=== PATIENT | female | born 1935 | race Caucasian/White ===

== ENCOUNTER 2016-10-20 17:22 | Observation (INO) | payer MEDICARE ==
[~2016-10-20] VITALS: Ht 170.2 cm; Wt 90.3 kg
--- NOTE | 2016-10-20 19:20 | DIAGNOSTIC IMAGING REPORT ---
PROCEDURE: US SOFT TISSUE ANYWHERE INDICATION: Injury. Coumadin. TECHNIQUE: Slater scale and color Doppler sonographic images of the right lateral leg were obtained COMPARISON: None. FINDINGS: There is a large 6.4 x 5.8 x 2.4 cm hypoechoic area in the lateral right leg/calf. Findings are compatible with intramuscular hematoma. IMPRESSION: 1. There is a 6.4 x 5.8 x 2.4 cm hypoechoic area in the right lateral leg/calf compatible with hematoma.
--- NOTE | 2016-10-20 20:24 | ED NURSING NOTES ---
Clinical Report - Nurses [facility] [address] [place] [address] 10/20/2016 17:26 Patient: CLIFF WARREN TRIAGE Triage time 17:35. Acuity: LEVEL 3. Chief Complaint: RIGHT LOWER EXTREMITY PAIN and SWELLING. Alert. DANIELLE COMA SCORE: Danielle Coma Scale: 15- eyes open spontaneously (4); best verbal response- oriented x 4 (5); best motor response- obeys commands (6). --17:54 Myla Melvin R.N. 17:35 10/20/16. BP: 167/63. HR: 59. RR: 18. O2 saturation: 97% on room air. Temp: 97.9 F (oral). Pain level now: 07/06. --17:54 Myla Melvin R.N. Weight: 90.2 kg stated. Height/Length: 67 inches Per Patient. BMI: 31.2. --17:51 Myla Melvin R.N. Medications Coumadin Oral. --17:37 Myla Melvin R.N. Albuterol Sulfate Inhalation. Furosemide Oral. MetFORMIN HCl Oral. Paxil Oral. Potassium Oral. Pravastatin Sodium Oral. Spironolactone Oral. Vitamin D Oral. --17:45 Myla Melvin R.N. AmLODIPine Besylate Oral. --17:47 Myla Melvin R.N. The following entry was struck by Myla Melvin R.N., 17:47 (10/20/16) Reason - other. <<STRICKEN ENTRY-- Blood Pressure Pill. --17:45 Myla Melvin R.N. --END STRIKE>>. Medication/allergy information source: the patient. --17:54 Myla Melvin R.N. Allergies Sulfa Antibiotics.(swelling) --17:46 Myla Melvin R.N. History Arrived by private vehicle. Historian: patient. Accompanied by family. Primary physician (Harish). This occurred today. ( fell this morning and has been hurting all day,). SOCIAL HX: Smoker- current status unknown (no). No alcohol use or drug use. LEARNING NEEDS ASSESSMENT: The learning needs assessment revealed no barriers. FALL RISK ASSESSMENT: Fall risk assessment completed. Risk factors identified include patient age greater than 65 years, history of fall and impairment of mobility. Fall interventions initiated. Patient placed on stretcher. Side rails up x2. Brakes on Bed in low position. FUNCTIONAL ASSESSMENT: Functional assessment performed: independent with the activities of daily living; mobility impairment present- this mobility impairment is a new problem. --17:54 Myla Melvin R.N. PROBLEMS: Pacemaker. --17:36 Myla Melvin R.N. Hypertension. Heart Disease. Diabetes Mellitus. Depression. Asthma. Kidney disease. --17:49 Myla Melvin R.N. ADDITIONAL SURGERIES: Carpal Tunnel Surgery. Hysterectomy. Mitral valvuloplasty. Pacemaker. Rectocele. Tubal Ligation. --17:49 Myla Melvin R.N. Assessment GENERAL / NEURO / PSYCH: The patient is awake and alert and is oriented and cooperative. She appears uncomfortable and agitated and has good eye contact. RESPIRATORY: Respirations not labored. SKIN: Skin is warm and dry. --17:54 Myla Melvin R.N. Interventions ID band on patient. To treatment room. --17:54 Myla Melvin R.N. PHYSICAL ASSESSMENT 17:35. To room via wheelchair. GENERAL / NEURO / PSYCH: Oriented X 4. Appears in pain. SKIN: Skin is warm and dry. --19:07 Myla Melvin R.N. NURSING PROGRESS NOTES 18:41 10/20/2016 Oxycodone-APAP (Oxycodone-Acetaminophen) PO 5/325 mg Tablets 2 tab given. Allergies verified, confirmed 5 rights and sedative warning given to the patient. --18:41 Myla Melvin R.N. 17:35. Call light placed in reach. Side rails up x 1. Bed placed in lowest position. Brakes of bed on. --19:08 Myla Melvin R.N. 17:36 had to go to the BR. --17:36 Olegario, Myla, R.N. Care transferred and report received. --19:15 Karuna Flower R.N. 20:03 10/20/16. BP: 174/62. HR: 52. RR: 15. O2 saturation: 95% on room air. Harper-Burden pain scale: 4/10. --20:04 Karuna Flower R.N. Patient and family informed about reason for wait and about plan of care. Patient waiting for consult. --20:04 Karuna Flower R.N. 20:36. The patient is calm and resting quietly. GENERAL / NEURO / PSYCH: Alert. Oriented X 4. RESPIRATORY: No respiratory distress. --20:37 Rich Bar R.N. 20:36 10/20/16. BP: 188/59. HR: 48. RR: 15. O2 saturation: 93% on room air. --20:37 Rich Bar R.N. 20:39 Patient and family notifed about NPO status. --20:40 Rich Bar R.N. ( Gave patient sandwich, apple juice, milk and cheese sticks to eat.). --21:20 Yusra Velazco addition to previous entry by Yusra: Food and drink given per verbal OK from vance GOVEA. --21:57 Karuna Flower R.N. DISPOSITION / DISCHARGE 21:55 10/20/16. BP: 147/54. HR: 60. RR: 16. O2 saturation: 92% on room air. Temp: deferred. Harper-Burden pain scale: 10. --21:55 Karuna Flower R.N. Disposition: observation in Acute Care. --22:00 Karuna Flower R.N. Report was given to a nurse via a phone call. All questions were answered. Report was acknowledged. (to KENYATTA Cid). --22:30 Karuna Flower R.N. Departure time: 2234Oct 20 2016. --02:39 Karuna Flower R.N. Locked/Released at 10/21/2016 2:39 by Karuna Flower R.N.
--- NOTE | 2016-10-20 20:24 | ED CLINICAL REPORT ---
Clinical Report - Physicians/Mid Levels [facility] [address] [place] [address] 10/20/2016 17:26 Patient: CLIFF WARREN Time Seen: 17:52 Oct 20 2016. Arrived- By private vehicle. Historian- patient. Note: (Sent from the clinic after initial evaluation.). CPT: ER phys charges level 5 (#[id number]). HISTORY OF PRESENT ILLNESS Location of injuries- right leg. Chief Complaint: FALL and INJURY TO LEFT LOWER EXTREMITY (LEG). The injury occurred today. Fell while walking and landed on a wood surface; slipped. Occurred at home. ( HAs a large , painful hematoma , right leg and is on coumadin.). The patient complains of moderate pain. No blow to the head, neck pain or loss of consciousness. REVIEW OF SYSTEMS The patient complains of pain on weight bearing. No numbness, dizziness, chest pain or pain or difficulty breathing. No weakness, headache, nausea, abdominal pain or laceration. No vomiting, fever, epistaxis, mouth sores or cough. No difficulty breathing, black stools, bloody stools, nausea or vomiting. No hematuria or easy bruising. The patient complains of pain on weight bearing. All systems otherwise negative, except as recorded above. PAST HISTORY Pacemaker. Hypertension. Heart Disease. Diabetes Mellitus. Depression. Asthma. Kidney disease. ADDITIONAL SURGERIES: Carpal Tunnel Surgery. Hysterectomy. Mitral valvuloplasty. Pacemaker. Rectocele. Tubal Ligation. SOCIAL HISTORY No alcohol use or drug use. ADDITIONAL NOTES The nursing notes have been reviewed. PHYSICAL EXAM Vital Signs: 10/20/2016 17:35 BP: 167/63. HR: 59. RR: 18. O2 saturation: 97%. Temp: 97.9 F. Pain level now: 10/10. Appearance: Alert. Appears to be in pain. Patient in moderate distress. Head: Head non-tender. No swelling of head. Eyes: Pupils equal, round and reactive to light. EOM intact. ENT: No dental injury. Pharynx normal. Neck: Painless ROM. Non-tender. CVS: Heart sounds normal. Pulses normal. Respiratory: Breath sounds normal. Chest nontender. Abdomen: No visible injury. Soft and nontender. Bowel sounds normal. Back: No tenderness. ROM normal. Skin: Skin intact. Skin warm. Extremities: Right leg: moderate tenderness and swelling and medium sized ecchymosis located in the upper and mid leg. Limited weight bearing secondary to pain. Neurovascular intact distally. (No pallor or passive ROM pain. 2+ distal pulses.). Neuro: Oriented X 3. No motor deficit. No sensory deficit. Reflexes normal. LABS, X-RAYS, AND EKG Note - Tests: (Right lower leg soft tissue ultrasound shows a large hematoma that is approximately 8 cm x 4 cm. No arterial component.). PROGRESS AND PROCEDURES Course of Care: Percocet 2 po Tib-fib x-ray of the right leg as well as right hand x-ray were done in the clinic today were negative for fracture. Patient's last INR she states was 4 days ago and was around 2.3 she thinks. Pt will need observation to monitor any progression towards compartment syndrome. Discussed case with on-call health care provider, (Nehemias). Reviewed test results. Agreed upon treatment plan. Health care provider will see patient in ED. Patient/family counseled. Old medical records ordered. Disposition: Admitted to Acute Care. CLINICAL IMPRESSION Large right leg hematoma At risk for compartment syndrome Anticoagulation status. (Electronically signed by Edmundo Ibarra MD 10/21/2016 11:09)
--- NOTE | 2016-10-20 20:24 | ED CLINICAL REPORT ---
Clinical Report - Physicians/Mid Levels [facility] [address] [place] [address] 10/20/2016 17:26 Patient: CLIFF WARREN Time Seen: 17:52 Oct 20 2016. Arrived- By private vehicle. Historian- patient. Note: (Sent from the clinic after initial evaluation.). CPT: ER phys charges level 5 (#[id number]). HISTORY OF PRESENT ILLNESS Location of injuries- right leg. Chief Complaint: FALL and INJURY TO LEFT LOWER EXTREMITY (LEG). The injury occurred today. Fell while walking and landed on a wood surface; slipped. Occurred at home. ( HAs a large , painful hematoma , right leg and is on coumadin.). The patient complains of moderate pain. No blow to the head, neck pain or loss of consciousness. REVIEW OF SYSTEMS The patient complains of pain on weight bearing. No numbness, dizziness, chest pain or pain or difficulty breathing. No weakness, headache, nausea, abdominal pain or laceration. No vomiting, fever, epistaxis, mouth sores or cough. No difficulty breathing, black stools, bloody stools, nausea or vomiting. No hematuria or easy bruising. The patient complains of pain on weight bearing. All systems otherwise negative, except as recorded above. PAST HISTORY Pacemaker. Hypertension. Heart Disease. Diabetes Mellitus. Depression. Asthma. Kidney disease. ADDITIONAL SURGERIES: Carpal Tunnel Surgery. Hysterectomy. Mitral valvuloplasty. Pacemaker. Rectocele. Tubal Ligation. SOCIAL HISTORY No alcohol use or drug use. ADDITIONAL NOTES The nursing notes have been reviewed. PHYSICAL EXAM Vital Signs: 10/20/2016 17:35 BP: 167/63. HR: 59. RR: 18. O2 saturation: 97%. Temp: 97.9 F. Pain level now: 10/10. Appearance: Alert. Appears to be in pain. Patient in moderate distress. Head: Head non-tender. No swelling of head. Eyes: Pupils equal, round and reactive to light. EOM intact. ENT: No dental injury. Pharynx normal. Neck: Painless ROM. Non-tender. CVS: Heart sounds normal. Pulses normal. Respiratory: Breath sounds normal. Chest nontender. Abdomen: No visible injury. Soft and nontender. Bowel sounds normal. Back: No tenderness. ROM normal. Skin: Skin intact. Skin warm. Extremities: Right leg: moderate tenderness and swelling and medium sized ecchymosis located in the upper and mid leg. Limited weight bearing secondary to pain. Neurovascular intact distally. (No pallor or passive ROM pain. 2+ distal pulses.). Neuro: Oriented X 3. No motor deficit. No sensory deficit. Reflexes normal. LABS, X-RAYS, AND EKG Note - Tests: (Right lower leg soft tissue ultrasound shows a large hematoma that is approximately 8 cm x 4 cm. No arterial component.). PROGRESS AND PROCEDURES Course of Care: Percocet 2 po Tib-fib x-ray of the right leg as well as right hand x-ray were done in the clinic today were negative for fracture. Patient's last INR she states was 4 days ago and was around 2.3 she thinks. Pt will need observation to monitor any progression towards compartment syndrome. Discussed case with on-call health care provider, (Nehemias). Reviewed test results. Agreed upon treatment plan. Health care provider will see patient in ED. Patient/family counseled. Old medical records ordered. Disposition: Admitted to Acute Care. CLINICAL IMPRESSION Large right leg hematoma At risk for compartment syndrome Anticoagulation status. (Electronically signed by Edmundo Ibarra MD 10/21/2016 11:09)
--- NOTE | 2016-10-20 20:24 | ED ORDER SUMMARY ---
..... Patient: CLIFF WARREN OrderSheet [facility] VisitID: [id number] [place] [address] 81y, F Registration Date/Time: 10/20/2016 ORDER SHEET Weight: 90.2 kg (stated) Allergies: Sulfa Antibiotics GENERAL ORDERS: US Soft Tissue Anywhere (right leg) (fall on coumadin) Urgent (18:04 10/20/2016 Ebenezer GOVEA) (Ack 18:08 LMuller) (18:29 Gee R.N.) CBC w Diff Urgent (18:05 10/20/2016 Ebenezer GOVEA) (Ack 18:08 LMuller) (18:29 Gee R.N.) PT with INR Urgent (18:05 10/20/2016 Ebenezer GOVEA) (Ack 18:08 LMuller) (18:29 Gee R.N.) Tibia/Fibula Right Urgent (18:40 10/20/2016 Ebenezer GOVEA) (Ack 18:49 LMuller) (22:02 RCjohanna R.N.) MEDICATION ORDERS: Oxycodone-APAP PO 10/650 mg (NOW) (18:34 10/20/2016 Ebenezer GOVEA) (Ack 18:38 Keo R.N.) (18:41 Keo R.N.) IV FLUIDS: ORDER SHEET NOTES: [Electronically signed by Karuna Flower R.N. (02:39 10/21/2016)] [Electronically signed by Edmundo Ibarra MD (11:09 10/21/2016)] [Electronically locked/signed by Karuna Flower R.N. (02:39 10/21/2016)]
--- NOTE | 2016-10-20 20:24 | ED ORDER SUMMARY ---
..... Patient: CLIFF WARREN OrderSheet [facility] VisitID: [id number] [place] [address] 81y, F Registration Date/Time: 10/20/2016 ORDER SHEET Weight: 90.2 kg (stated) Allergies: Sulfa Antibiotics GENERAL ORDERS: US Soft Tissue Anywhere (right leg) (fall on coumadin) Urgent (18:04 10/20/2016 Ebenezer GOVEA) (Ack 18:08 LMuller) (18:29 Gee R.N.) CBC w Diff Urgent (18:05 10/20/2016 Ebenezer GOVEA) (Ack 18:08 LMuller) (18:29 Gee R.N.) PT with INR Urgent (18:05 10/20/2016 Ebenezer GOVEA) (Ack 18:08 LMuller) (18:29 Gee R.N.) Tibia/Fibula Right Urgent (18:40 10/20/2016 Ebenezer GOVEA) (Ack 18:49 LMuller) (22:02 RCjohanna R.N.) MEDICATION ORDERS: Oxycodone-APAP PO 10/650 mg (NOW) (18:34 10/20/2016 Ebenezer GOVEA) (Ack 18:38 Keo R.N.) (18:41 Keo R.N.) IV FLUIDS: ORDER SHEET NOTES: [Electronically signed by Karuna Flower R.N. (02:39 10/21/2016)] [Electronically signed by Edmundo Ibarra MD (11:09 10/21/2016)] [Electronically locked/signed by Karuna Flower R.N. (02:39 10/21/2016)]
[2016-10-20 22:55] VITALS: BP 157/59
--- NOTE | 2016-10-21 00:01 | HISTORY AND PHYSICAL ---
ADMITTED: 10/20/2016 CHIEF COMPLAINT: 1. Right lower crystal swelling and pain HISTORY OF PRESENT ILLNESS: This is a 81-year-old female with history of atrial fibrillation on Coumadin, presenting after a fall on the ice, during which she hit her right crystal. Over the course of today, her right crystal has become progressively more and more painful and more swollen and she did notice a bruise there. When the pain was too severe to handle, she presented to the emergency department. The family and the patient thinks that the hematoma may have continued to enlarge even this evening. MEDICAL/SURGICAL HISTORY: Past medical history: Congestive heart failure with the most recent echocardiogram approximately 1 week ago, atrial fibrillation, heart surgery, bilateral tubal ligation in 1959, hysterectomy and oophorectomy in 1985, pacemaker and pacemaker replacement, most recently in 2011, asthma, prediabetes, hypertension, GERD, CHF. MEDICATIONS: This medication list does need to be confirmed with patient's primary care physician. 1. Amlodipine 5 mg p.o. daily. 2. Spironolactone possibly 12.5 mg p.o. daily. 3. Paxil 10 mg p.o. daily. 4. Pravastatin 40 mg p.o. at bedtime. 5. Prilosec 20 mg p.o. b.i.d. 6. Potassium 10 mEq p.o. b.i.d. 7. Lasix 80 mg p.o. daily. 8. Metformin 500 mg p.o. b.i.d. 9. Coumadin 4 mg p.o. daily. ALLERGIES: 1. SULFA. SOCIAL HISTORY: The patient lives with her ex-, his daughter and son-in- law. She denies any smoking, alcohol use or drugs. FAMILY HISTORY: The patient's mother has diabetes and heart problem, sisters both have diabetes and one also has heart failure. REVIEW OF SYSTEMS: A full 12-point review of systems was negative except as per HPI, and the fact that patient has chronic shortness of breath, which is stable, and due to her congestive heart failure. PHYSICAL EXAMINATION: VITAL SIGNS: Blood pressure is 167/63, pulse is 59, respiratory rate is 16, O2 saturation is normal on room air. GENERAL: This is an elderly patient sitting in bed in no apparent distress. HEENT: Head is atraumatic, normocephalic. Pupils are equal, round, and reactive to light with accommodation bilaterally. Trachea is midline. NECK: There is no JVD. HEART: S1, S2, regular rate and rhythm. There is a 2/6 systolic murmur with a snap increased at the base. LUNGS: Clear to auscultation bilaterally. ABDOMEN: Soft, nontender, nondistended without hepatosplenomegaly or masses. Bowel sounds are active. EXTREMITIES: There is 1+ edema in bilateral ankles with approximately a 15 x 10 cm hematoma that is tender in the right crystal. The patient does have good CMS in that ankle and foot and is only tender directly over the hematoma. The rest of her leg is nontender. LAB/IMAGING: Laboratories: White blood cell count is 7.0, hemoglobin of 10.8, hematocrit of 34.3, platelets of 20.6. INR of 2.0. Other studies: Ultrasound: Shows a hypoechoic area in the right crystal of 6.4 x 5.8 x 2.4 cm on ultrasound. IMPRESSION: 1. This is a 81-year-old female with the history of atrial fibrillation on Coumadin, presenting to the hospital with complaints of right crystal pain and swelling secondary to a hematoma after she hit it from slipping on ice. PLAN: 1. The patient will be observed overnight to make sure that the hematoma does not get any larger. If it is enlarging or if her pain worsens, we would want to reevaluate for compartment syndrome. I did [place] the hematoma currently. She is adequately anticoagulated on her Coumadin. Since it appears that the hematoma has currently stopped bleeding we will not currently anticoagulate her. If the bleeding does appear to continue, we will probably need to reverse her anticoagulation. 2. Prophylaxis: The patient is adequately anticoagulated currently. We will recheck a PT/INR in the morning and reevaluate for the need for either more chemical or mechanical deep venous thrombosis prophylaxis, and patient is currently eating. 3. Code status: CODE STATUS IS DO NOT RESUSCITATE, and I did explain this explicitly to this patient today and discussed and this is her choice.
[2016-10-21 04:55] VITALS: BP 133/69
[2016-10-21 07:24] VITALS: BP 146/87
--- NOTE | 2016-10-21 08:17 | Progress Note ---
Subjective General Note Date: October 21, 2016 Admission Date: October 20, 2016 Hospital Day: 2 PCP: Tabitha Moreira M.D. Status: Observation Advanced Directive: NO CODE Room: 209- B Brief History: The patient is a 81-year-old white female with a significant past medical history of atrial fibrillation, chronic anticoagulation, diabetes mellitus, hypercholesterolemia, hypertension, who presented to [facility] emergency department secondary to fall with injury to right lower leg. [facility] ER evaluation was consistent with hematoma right lower leg. Secondary to the above, the patient was admitted by Brook Jean M.D. with consultation by Harvinder Graham M.D. (General surgery) for possible evacuation of hematoma. For other history present illness, past medical history, family history, social history, review of systems, and admission physical examination please see the patient's history and physical examination and ER visit note in the patient's medical record. Subjective: The patient states she is doing well. Right lower leg pain improved. Right lower leg swelling improved. Ambulating without significant difficulty. Patient requests: No specific Physical Exam Vital Signs / I&Os Vital Signs Date Time Temp Pulse Resp B/P Pulse O2 O2 Flow FiO2 Ox Delivery Rate 10/21 0724 97.5 66 18 146/87 95 Room Air 10/21 0455 98.6 66 16 133/69 95 Room Air 10/20 2255 98.1 61 18 157/59 94 Room Air 0.0 I&O 10/21 0000 10/20 1600 10/20 0800 Intake Total Output Total Balance General Appearance Alert, Oriented X3, Cooperative, No acute distress Lungs Clear to auscultation Cardiovascular Regular rate and rhythm, Normal S1 and S2 Abdomen Normal bowel sounds, Soft Extremities No cyanosis, No clubbing, hematoma present lateral aspect right lower leg. This area is soft without findings suggestive of compartment syndrome. Swelling improved. Neurological Grossly normal Psych/Mental Status Mental status normal, Mood normal LAB Results Laboratory Tests 10/21 10/20 10/20 10/20 0605 1849 1849 1849 Chemistry Plasma Sodium (136 - 145 mmol/L) 141 140 Plasma Potassium (3.5 - 5.1 mmol/L) 3.6 3.3 Plasma Chloride (98 - 107 mmol/L) 102 100 CO2 (Enzymatic) (21 - 32 mmol/L) 32 30 BUN (7 - 18 mg/dL) 24 21 Creatinine (0.6 - 1.3 mg/dL) 1.2 1.3 Est GFR ( Amer) (mL/min) 55.82 50.90 Est GFR (Non-Af Amer) (mL/min) 46.06 42.00 Glucose (70 - 110 mg/dL) 123 104 Hemoglobin A1c % (4.5 - 6.2 %) 6.4 Plasma Calcium (8.5 - 10.1 mg/dL) 8.5 8.8 Total Bilirubin (0.0 - 1.0 mg/dL) 0.7 AST (15 - 37 U/L) 21 ALT (12 - 78 U/L) 22 Alkaline Phosphatase (46 - 116 U/L) 83 B-Natriuretic Peptide (5 - 100 pg/ml) 222 Total Protein (6.4 - 8.2 g/dL) 7.3 Albumin (3.3 - 5.0 g/dL) 3.8 Coagulation INR (0.8 - 1.2) 1.9 2.0 Hematology WBC (4.5 - 11.5 K/uL) 5.7 7.0 RBC (4.00 - 5.20 M/uL) 3.70 3.99 Hgb (12.0 - 16.0 gm/dL) 10.1 10.8 Hct (36.0 - 46.0 %) 31.8 34.3 MCV (80 - 100 fL) 86 86 MCH (26 - 34 pg) 27 27 RDW (11.6 - 14.8 %) 16.6 16.4 Neut % (Auto) (50 - 75 %) 68.8 75.1 Lymph % (Auto) (25 - 40 %) 18.1 14.7 Johnson % (Auto) (3 - 14 %) 10.5 9.5 Eos % (Auto) (0 - 4 %) 1.7 0.3 Baso % (Auto) (0 - 2 %) 0.9 0.4 Plt Count, EDTA (150 - 400 K/uL) 187 206 PUBS MCHC (31 - 37 g/dL) 32 32 Assessment and Plan Problem List 1. Hematoma of leg Status Acute Onset Date 10/20/16 Plan -Patient presents with hematoma--leg -Monitor -Hold evacuation unless patient developed compartment syndrome or other necessities for evacuation -Consultation per Dr. Graham 2. Chronic anticoagulation Status Chronic Onset Date Unknown Plan -History of chronic anticoagulation -INR subtherapeutic at 1.9 today. -Hold Coumadin at this time -Monitor 3. Iron deficiency anemia Status Acute Onset Date Unknown Plan -Patient with findings of iron deficiency anemia -Ferrous sulfate 325 mg by mouth twice a day -Follow-up with PCP with consideration of upper/lower endoscopy -Repeat CBC/reticulocyte count in 2 weeks Current status: Fair, improved Anticipated discharge date: Today Anticipated discharge placement: Home Patient care time: Time spent in chart review, patient interview, physical exam, CPOE, and care documentation: Greater than 30 minutes Visit to patient today: 2 Complexity of care: Moderate For other recommendations regarding discharge diet, activity, followup, and discharge medications please see the patient's discharge instructions. Greater than 30 min. was spent in the patient's discharge preparation including discharge interview and physical examination, progress note, discharge instructions, and discharge summary E&M Codes Discharge: Observation - All/[id number] CPOE, and care documentation: [ ] minutes Visit to patient today: [ ] Complexity of care: [ ] E&M Codes Discharge: Observation - All/[id number]
[2016-10-21] MEDS ORDERED: ALLOPURINOL100 MG PO (10:34)
[2016-10-21] MEDS ORDERED: ALBUTEROL HFA60 DOSE IN (10:34)
[2016-10-21] MEDS ORDERED: AMLODIPINE BESYL5 MG PO (10:35)
[2016-10-21] MEDS ORDERED: FUROSEMIDE40 MG PO (10:36)
[2016-10-21] MEDS ORDERED: NORCO1 TA2 PO (10:40)
[2016-10-21] MEDS ORDERED: METFORMIN HCL500 MG PO (10:40)
[2016-10-21] MEDS ORDERED: MORPHINE SULFAT15 M2 PO (10:41)
[2016-10-21] MEDS ORDERED: PRILOSEC20 MG PO (10:41)
[2016-10-21] MEDS ORDERED: KLOR-CON 1010 MEQ PO (10:42)
[2016-10-21] MEDS ORDERED: PAROXETINE HCL10 MG PO (10:42)
[2016-10-21] MEDS ORDERED: PRAVACHOL40 MG PO (10:43)
[2016-10-21] MEDS ORDERED: COUMADIN2 MG PO (10:44)
[2016-10-21] MEDS ORDERED: ALDACTONE25 MG PO (10:44)
[2016-10-21 10:47] VITALS: BP 164/70
--- NOTE | 2016-10-21 11:10 | ED DISCHARGE INSTRUCTIONS ---
Patient: CLIFF WARREN General Instructions [facility] VisitID: [id number] [address] [place] [address] 81y, F Registration Date/Time: 10/20/2016 Large right leg hematoma At risk for compartment syndrome Anticoagulation status. (Electronically signed by Edmundo Ibarra MD 10/21/2016 11:09)
--- NOTE | 2016-10-21 11:10 | ED MED RECONCILIATION SUMMARY ---
Patient: CLIFF WARREN Medication Reconciliation Report [facility] VisitID: [id number] [address] [place] [address] 81y, F Registration Date/Time: 10/20/2016 Weight: 90.2 kg Height/Length: 67 in. BMI: 31.2 ALLERGIES: Sulfa Antibiotics The patient's Home Medications are listed below: THE FOLLOWING MEDICATIONS NEED TO BE RECONCILED: Albuterol Sulfate Inhalation AmLODIPine Besylate Oral Coumadin Oral Furosemide Oral MetFORMIN HCl Oral Paxil Oral Potassium Oral Pravastatin Sodium Oral Spironolactone Oral Vitamin D Oral The source(s) of the original Home Medication information: patient The following Medications were given to the patient in the Emergency Department: Oxycodone-APAP [PO] PO 2 tab, administered: 10/20/2016 6:41:00 PM The following Medications were prescribed to the patient: None.
--- NOTE | 2016-10-21 11:10 | ED MAR SUMMARY ---
..... Medication Administration Record [facility] [address] [place] [address] Patient: CLIFF WARREN Visit ID: [id number] 81y, F Weight: 90.2 kg Height/Length: 67 in BMI: 31.2 ALLERGIES: Sulfa Antibiotics Given 18:41 10/20/2016 Myla Melvin RAdelaida Medication Administered: OXYCODONE-APAP [PO] (OXYCODONE-ACETAMINOPHEN), Dose: 2 tab 5/325 mg Tablets PO. Medication Ordered: Oxycodone-APAP PO 10/650 mg (NOW).
--- NOTE | 2016-10-21 11:10 | ED MAR SUMMARY ---
..... Medication Administration Record [facility] [address] [place] [address] Patient: CLIFF WARREN Visit ID: [id number] 81y, F Weight: 90.2 kg Height/Length: 67 in BMI: 31.2 ALLERGIES: Sulfa Antibiotics Given 18:41 10/20/2016 Myla Melvin RAdelaida Medication Administered: OXYCODONE-APAP [PO] (OXYCODONE-ACETAMINOPHEN), Dose: 2 tab 5/325 mg Tablets PO. Medication Ordered: Oxycodone-APAP PO 10/650 mg (NOW).
--- NOTE | 2016-10-21 11:10 | ED DISCHARGE INSTRUCTIONS ---
Patient: CLIFF WARREN General Instructions [facility] VisitID: [id number] [address] [place] [address] 81y, F Registration Date/Time: 10/20/2016 Large right leg hematoma At risk for compartment syndrome Anticoagulation status. (Electronically signed by Edmundo Ibarra MD 10/21/2016 11:09)
--- NOTE | 2016-10-21 11:10 | ED MED RECONCILIATION SUMMARY ---
Patient: CLIFF WARREN Medication Reconciliation Report [facility] [place] VisitID: [id number] [address] [place] [address] 81y, F Registration Date/Time: 10/20/2016 Weight: 90.2 kg Height/Length: 67 in. BMI: 31.2 ALLERGIES: Sulfa Antibiotics The patient's Home Medications are listed below: THE FOLLOWING MEDICATIONS NEED TO BE RECONCILED: Albuterol Sulfate Inhalation AmLODIPine Besylate Oral Coumadin Oral Furosemide Oral MetFORMIN HCl Oral Paxil Oral Potassium Oral Pravastatin Sodium Oral Spironolactone Oral Vitamin D Oral The source(s) of the original Home Medication information: patient The following Medications were given to the patient in the Emergency Department: Oxycodone-APAP [PO] PO 2 tab, administered: 10/20/2016 6:41:00 PM The following Medications were prescribed to the patient: None.
--- NOTE | 2016-10-21 14:17 | Provider's Discharge Care Plan ---
Problem, Goal, Plan Problem List 1. Hematoma of leg Goals: Improve disease control, Prevent disease progress Instructions: Follow up as directed, Take meds as directed, Follow-up with your family physician in 2 days to assess hematoma. 2. Iron deficiency anemia Goals: Improve disease control, Prevent disease progress Instructions: Follow up as directed, Take meds as directed, Follow-up to discuss iron deficiency anemia with your physician with consideration of endoscopic evaluation for GI blood source.
[2016-10-21] MEDS ORDERED: FERROUS SULFAT325 M1 PO (14:19)
--- NOTE | 2016-10-21 14:38 | Discharge Summary ---
Discharge Summary Report Admit Date 10/20/16 Discharge Date 10/21/16 Admission Diagnosis 1. Hematoma (R) Lower Leg 2. Chronic anticoagulation 3. Anemia Discharge Diagnosis 1. Hematoma (R) Lower Leg 2. Chronic Anticoagulation 3. Iron Deficience Anemia Brief History The patient is a 81-year-old white female with a significant past medical history of atrial fibrillation, chronic anticoagulation, diabetes mellitus, hypercholesterolemia, hypertension, who presented to [facility] emergency department secondary to fall with injury to right lower leg. [facility] ER evaluation was consistent with hematoma right lower leg. Secondary to the above, the patient was admitted by Brook Jean M.D. with consultation by Harvinder Graham M.D. (General surgery) for possible evacuation of hematoma. For other history present illness, past medical history, family history, social history, review of systems, and admission physical examination please see the patient's history and physical examination and ER visit note in the patient's medical record. Hospital Course The following problems and their management were noted during the patient's hospitalization: 1. Hematoma (R) Lower Leg The patient presented with hematoma right lower leg. This was present on lateral aspect right lower leg. This area is soft mildly tender to palpation. No significant erythema. No tenderness in the anterior compartment. Swelling was improved at the time of discharge. The patient was up ambulating without problems. She was discharged home to follow-up with her PCP in 2 days. 2. Chronic Anticoagulation Continue present anticoagulation. INR 1.9 on discharge. Follow-up in 2 days with PCP. 3. Iron Deficience Anemia The patient was noted to have findings of iron deficiency anemia. Ferrous sulfate 325 mg by mouth twice a day. Follow-up with PCP with consideration of upper/lower GI endoscopy. Follow-up CBC in 2 weeks with reticulocyte count. Patient instructed to talk with physician about her iron deficiency and possible need for upper and lower endoscopy. Lab/Imaging Laboratory Tests 10/21 10/21 10/20 10/20 10/20 [id number] 1849 Chemistry Plasma Sodium (136 - 145 mmol/L) 141 140 Plasma Potassium (3.5 - 5.1 mmol/L) 3.6 3.3 Plasma Chloride (98 - 107 mmol/L) 102 100 CO2 (Enzymatic) (21 - 32 mmol/L) 32 30 BUN (7 - 18 mg/dL) 24 21 Creatinine (0.6 - 1.3 mg/dL) 1.2 1.3 Est GFR ( Amer) (mL/min) 55.82 50.90 Est GFR (Non-Af Amer) (mL/min) 46.06 42.00 Glucose (70 - 110 mg/dL) 123 104 Hemoglobin A1c % (4.5 - 6.2 %) 6.4 Plasma Calcium (8.5 - 10.1 mg/dL) 8.5 8.8 Iron (35 - 150 ug/dL) 41 TIBC (260 - 445 ug/dL) 365 Iron Saturation (15 - 50 %) 11 Total Bilirubin (0.0 - 1.0 mg/dL) 0.7 AST (15 - 37 U/L) 21 ALT (12 - 78 U/L) 22 Alkaline Phosphatase (46 - 116 U/L) 83 B-Natriuretic Peptide (5 - 100 pg/ml) 222 Total Protein (6.4 - 8.2 g/dL) 7.3 Albumin (3.3 - 5.0 g/dL) 3.8 Vitamin B12 (211 - 946 pg/mL) 294 Folate (>3.0 ng/mL) 12.7 Coagulation INR (0.8 - 1.2) 1.9 2.0 Hematology WBC (4.5 - 11.5 K/uL) 5.7 7.0 RBC (4.00 - 5.20 M/uL) 3.70 3.99 Hgb (12.0 - 16.0 gm/dL) 10.1 10.8 Hct (36.0 - 46.0 %) 31.8 34.3 MCV (80 - 100 fL) 86 86 MCH (26 - 34 pg) 27 27 RDW (11.6 - 14.8 %) 16.6 16.4 Neut % (Auto) (50 - 75 %) 68.8 75.1 Lymph % (Auto) (25 - 40 %) 18.1 14.7 Meriwether % (Auto) (3 - 14 %) 10.5 9.5 Eos % (Auto) (0 - 4 %) 1.7 0.3 Baso % (Auto) (0 - 2 %) 0.9 0.4 Plt Count, EDTA (150 - 400 K/uL) 187 206 PUBS MCHC (31 - 37 g/dL) 32 32 Discharge Instructions/Meds For other recommendations regarding discharge diet, activity, followup, and discharge medications please see the patient's discharge instructions. Discharge condition: Good, improved Greater than 30 min. was spent in the patient's discharge preparation including discharge interview and physical examination, progress note, discharge instructions, and discharge summary The patient was interviewed and examined on the day of discharge. E&M Codes Discharge: Observation - All/[id number]
== END 2016-10-21 15:10 | disposition home or self-care (01) ==
LOC: ED SRH 17:22 → ACUTE2 SRH 21:42 → TRANS SRH 21:42 → ACUTE2 SRH 22:45
PROVIDERS: ADMIT Family Medicine
DX: S80.11XA Contusion of right lower leg, initial encounter (principal); W00.0XXA Fall on same level due to ice and snow, initial encounter; Y93.01 Activity, walking, marching and hiking; Y92.007 Garden or yard of unspecified non-institutional (private) residence as the place of occurrence of the external cause; Y99.8 Other external cause status; I48.91 Unspecified atrial fibrillation; Z79.01 Long term (current) use of anticoagulants; I11.0 Hypertensive heart disease with heart failure; I50.9 Heart failure, unspecified; D50.9 Iron deficiency anemia, unspecified; R73.03 Prediabetes; E78.00 Pure hypercholesterolemia, unspecified; Z95.0 Presence of cardiac pacemaker
CPT/HCPCS: 29230; 29246; 29263; 90047; 90074; 90098; 90100; 91286; 91320; 91504; 91505; 92668; 92670; 94060; 95059